=== PATIENT | male | born 1965 | race African-American/Black ===

== ENCOUNTER 2017-09-09 07:38 | Day surgery (SDC) | payer OTHER ==
[2017-09-09] MEDS ORDERED: ONDANSETRON HCL INJ/PF 4 MG/2 ML SDV ONE (07:47)
[2017-09-09] MEDS ORDERED: DIPHENHYDRAMINE HCL 50 MG/ML VIAL ONE (07:47)
[2017-09-09] MEDS ORDERED: NALOXONE HCL INJ/PF 0.4 MG/1 ML SDV ONE (07:48)
[2017-09-09] MEDS ORDERED: GLUCAGON,HUMAN RECOMB 1 MG INJ ONE (07:49)
[2017-09-09] MEDS ORDERED: FLUMAZENIL INJ 0.5 MG/5 ML VIAL ONE (07:49)
[2017-09-09] MEDS ORDERED: EPINEPHRINE INJ 1 MG/10 ML DISP.SYRIN ONE (07:49)
[2017-09-09] MEDS: MIDAZOLAM 2 MG/2 ML INJ ONE ×3 (09:10→09:20)
[2017-09-09] MEDS: FENTANYL CITRATE INJ/PF 100 MCG/2 ML AMPUL ONE ×2 (09:12→09:25)
--- NOTE | 2017-09-09 10:00 | Operative Report ---
Operative Report DATE OF SURGERY: 09/09/17 PREOPERATIVE DIAGNOSIS: 1. Rectal bleeding. 2. Personal history of colon polyps. 3. Status post hemorrhoidectomy POSTOPERATIVE DIAGNOSIS: 1. No evidence of gastrointestinal bleeding. 2. Mild gastritis. 3. Sigmoid diverticulosis. 4. Sigmoid colon polyp OPERATION: 1. Esophagogastroduodenoscopy. 2. Cold forceps biopsy of a gastric antrum. 3. Total colonoscopy to cecum. 4. Hot snare polypectomy of sigmoid colon polyp SURGEON: ALDO ADAMES ANESTHESIA: Moderate Sedation TISSUE REMOVED OR ALTERED: Polyp; mucosal biopsy of stomach COMPLICATIONS: None ESTIMATED BLOOD LOSS: None INTRAOPERATIVE FINDINGS: See below PROCEDURE: Patient was taken to the endoscopy suite from the holding area where he underwent conscious sedation. Monitoring devices were attached previously. Surgical plan surgical timeout conducted. Oral mouthpiece inserted. The flexible adult upper endoscope was advanced through the oropharynx, down the esophagus through the stomach into the duodenum first and second portions. This is well tolerated by the patient. There was no evidence of bleeding polyp tumor stricture. There is mild antral gastritis, and a cold forceps biopsy was performed. Bleeding was negligible. Specimen was sent as gastric antrum for JO testing and histology. Scope was retroflexed in the stomach. There was no significant hiatal hernia. Scope was straightened out and the Z line was found to be at approximately 40 cm from the incisor. No significant irregularities. The esophagus was without varices tumor stricture or inflammation. The scope was withdrawn the patient's oropharynx. He tolerated procedure well Instrumentation was set up for colonoscopy. The patient was placed in the extreme left lateral decubitus position. Rectal exam was performed. There was no visible or palpable anorectal pathology. The posterior surface of the prostate gland was smooth. The flexible adult colonoscope was advanced to the anorectal canal all the way to cecum. It was an excellent study well-prepped bowel. Transillumination anterior abdominal wall, visualization cecal anatomy confirmed cecal intubation. The scope was withdrawn with the medical check the mucosa carefully. There is scattered diverticulosis of the sigmoid colon only. No stricture. One small polyp removed from the sigmoid colon approximately 45 cm from the anal verge using hot snare device on medium heat strength and the specimen retrieved for pathologic analysis. Polypectomy site showed no bleeding. Scope was brought to the rest of the colon. Again no pathology no bleeding. Scope syndrome of the patient's anus. Taught procedure well. Per surveillance guidelines, patient be appropriate candidate for follow-up colonoscopy in 3 years, or sooner if symptoms develop.
--- NOTE | 2017-09-09 10:02 | Discharge Summary ---
Discharge Summary (SDC) - Discharge Final Diagnosis: Diverticulosis, sigmoid colon polyp, mild gastritis Date of Surgery: 09/09/17 Discharge Date: 09/09/17 Condition: Good Treatment or Instructions: [facility] [place] [id number] POST ENDOSCOPY DISCHARGE INSTRUCTIONS 1. Diet: Start clear liquids that a regular diet as tolerated. 2. Resume all preoperative medications. All oral anticoagulants and aspirins can be resumed 24 hours after procedure. 3. If a polypectomy was performed some bleeding per rectum may occur. This should stop within 3 days. If not, please contact the office. 4. If you had a colonoscopy you may experience some bloating and delayed return of normal bowel function for several days, your regular bowel movement pattern should resume within a week. 5. Please contact [facility] at to make an appointment with Dr. Miles for 1 to 3 weeks following procedure. 6. If you have any questions or concerns regarding your care,treatment plan or follow up, please contact our office. 7. Per clinical guidelines we recommend you undergo a repeat colonoscopy in 3 years. Referrals: ALDO MILES MD [ACTIVE STAFF] - 09/21/17 2:15 pm Discharge Diet: As Tolerated Discharge Activity: Activity As Tolerated Home Care Assistance: None Needed Report the Following to Your Physician Immediately: Shortness of Breath, Increase in Pain, Fever over 101 Degrees
[2017-09-09 10:48] VITALS: BP 133/76
== END 2017-09-09 10:50 | disposition home or self-care (01) ==
LOC: END 07:38
PROVIDERS: ATTEND Surgery
DX: K29.70 Gastritis, unspecified, without bleeding (principal); K57.30 Diverticulosis of large intestine without perforation or abscess without bleeding; K58.9 Irritable bowel syndrome, unspecified; K62.5 Hemorrhage of anus and rectum; Z86.010 Personal history of colon polyps; D12.5 Benign neoplasm of sigmoid colon; E11.9 Type 2 diabetes mellitus without complications; I10 Essential (primary) hypertension; M19.90 Unspecified osteoarthritis, unspecified site; Z96.651 Presence of right artificial knee joint; F17.210 Nicotine dependence, cigarettes, uncomplicated; G47.30 Sleep apnea, unspecified; Z88.8 Allergy status to other drugs, medicaments and biological substances; Z79.84 Long term (current) use of oral hypoglycemic drugs; Z79.82 Long term (current) use of aspirin; Z79.4 Long term (current) use of insulin; Z79.899 Other long term (current) drug therapy; Z87.898 Personal history of other specified conditions; Z91.040 Latex allergy status
CPT/HCPCS: 43239; 45385; 82962; 88342 ×2; 88305 ×2; J2250; J3010; J0171; J1200; J1610; J2310; J2405; J3490